=== PATIENT | female | born 1970 | race Caucasian/White ===

== ENCOUNTER 2021-03-11 14:02 | Outpatient (CLI) | payer BC | END 2021-03-11 14:03 | disposition home or self-care (01) | LOC: CSHULT 14:02 | PROVIDERS: ATTEND Student in an Organized Health Care Education/Training Program | DX: E04.1 Nontoxic single thyroid nodule (principal); E04.2 Nontoxic multinodular goiter | CPT/HCPCS: 76536 ==

== ENCOUNTER 2022-05-05 10:52 | Outpatient (CLI) | payer OTHER ==
[~2022-05-05 10:52] MED LIST: Magnevist 469MG/ML 20 ML VIAL ONE
== END 2022-05-05 10:53 | disposition home or self-care (01) ==
LOC: CSHMRI 10:52
PROVIDERS: ATTEND Ophthalmology
DX: H02.401 Unspecified ptosis of right eyelid (principal); G43.009 Migraine without aura, not intractable, without status migrainosus; R90.82 White matter disease, unspecified
CPT/HCPCS: 70543; 70544; 70547; 70553; A9579

== ENCOUNTER 2022-05-26 13:37 | Outpatient (CLI) | payer OTHER | END 2022-05-26 13:38 | disposition home or self-care (01) | LOC: CSHLAB 13:37 | PROVIDERS: ATTEND Otolaryngology Plastic Surgery within the Head & Neck | DX: Z01.818 Encounter for other preprocedural examination (principal); E07.9 Disorder of thyroid, unspecified | CPT/HCPCS: 85014; 93005; 93010 ==

== ENCOUNTER 2022-06-14 05:38 | Day surgery (SDC) | payer OTHER, SELFPAY ==
[2022-06-11 08:21] VITALS: BMI 23.3
[2022-06-14] MEDS ORDERED: Lidocaine 1% w/Epinephrine 1:100K 30 ML VIAL ONE (06:23)
[2022-06-14] MEDS ORDERED: Midazolam HCl 2 mg/2 ml Vial ONE ×2 (06:33→06:46)
[2022-06-14] MEDS ORDERED: Rocuronium Bromide 10 MG/ML (10ML VIAL) ONE (06:33)
[2022-06-14] MEDS ORDERED: Lidocaine 1% PF 5 ML VIAL ONE ×2 (06:33)
[2022-06-14] MEDS ORDERED: PROPOFOL 20 ML ONE ×2 (06:33→07:44)
[2022-06-14] MEDS ORDERED: Glycopyrrolate 0.2 MG/ML 5 ML SYRINGE ONE (06:33)
[2022-06-14] MEDS ORDERED: Fentanyl 100 MCG/2 ML VIAL ONE ×3 (06:33→08:38)
[2022-06-14] MEDS ORDERED: Ondansetron PF 4 MG/2 ML Vial ONE (06:33)
[2022-06-14] MEDS ORDERED: CEFAZOLIN 1 GM VIAL ONE (07:00)
[2022-06-14] MEDS ORDERED: PHENYLEPHRINE-NS 100 MCG/ML 10 ML SYRINGE ONE (07:19)
[2022-06-14] MEDS ORDERED: ePHEDrine Sulfate 50 MG/10 ML VIAL ONE (07:20)
[2022-06-14] MEDS ORDERED: HYDROcodone/Acetaminophen 5/325 mg Tablet ONE (09:25)
== END 2022-06-14 10:50 | disposition home or self-care (01) ==
LOC: CSHSDC 05:38
PROVIDERS: ATTEND Otolaryngology Plastic Surgery within the Head & Neck
PROC: 0GBH0ZZ Excision of Right Thyroid Gland Lobe, Open Approach (ICD-10-PCS; principal; 2022-06-14)
DX: E04.2 Nontoxic multinodular goiter (principal); G43.909 Migraine, unspecified, not intractable, without status migrainosus; Z79.899 Other long term (current) drug therapy; Z92.3 Personal history of irradiation; Z88.1 Allergy status to other antibiotic agents; Z88.2 Allergy status to sulfonamides; Z88.8 Allergy status to other drugs, medicaments and biological substances
CPT/HCPCS: 88307; J0690; J2250; J2405; J2704; J3010

== ENCOUNTER 2025-04-27 12:01 | Emergency (ER) | payer BC, SELFPAY ==
[~2025-04-27 12:01] MED LIST changes: +Iopamidol 370 76% 100 ML VIAL ONE; -Magnevist 469MG/ML 20 ML VIAL ONE
[2025-04-27 12:47] LABS: #Basophils 0.03 10x3/uL (0.0-0.2); #Eosinophils 0.13 10x3/uL (0.0-0.5); #Monocytes 0.71 10x3/uL (0.0-1.1); #Neutrophils 4.94 10x3/uL (1.5-8.4); %Basophils 0.4 % (0.0-2.0); %Eosinophils 1.6 % (0.0-6.0); %Lymphocytes 28.5 % (18.0-47.0); %Monocytes 8.7 % (0.0-10.0); %Neutrophils 60.6 % (40.0-75.0); Hematocrit 43.0 % (34.9-44.5); Hemoglobin 14.3 g/dL (12.0-15.5); Mean Corpuscular Hemoglobin 28.9 pg (27.0-33.0); Mean Corpuscular Volume 86.9 fL (81.6-98.3); Platelet Count 471 10x3/uL (150-450); Red Blood Cell (RBC) Count 4.95 10x6/uL (3.90-5.03); White Blood Cell (WBC) Count 8.15 10x3/uL (3.5-10.5)
[2025-04-27 12:55] LABS: INR-International Normal Ratio 1.0; PTT 28.9 sec (22.0-33.0); Prothrombin Time 10.9 sec (9.5-12.1)
[2025-04-27 12:56] LABS: ALT (SGPT) 13 U/L (Less than 34); AST (SGOT) 17 U/L (11-34); Albumin 3.9 g/dL (3.1-4.5); Alkaline Phosphatase 60 U/L (40-110); Anion Gap 13 mmol/L (10-20); BUN (Urea Nitrogen) 12 mg/dL (9.8-20.1); Bilirubin, Total 0.2 mg/dL (0.3-1.2); Calc. Creatinine Clearance 0 mL/min (70-130); Calcium 9.4 mg/dL (7.8-10.44); Carbon Dioxide 24 mmol/L (22-29); Chloride 106 mmol/L (98-107); Globulin 3.4 g/dL (2.4-3.5); Glucose 95 mg/dL (70-105); Potassium 4.1 mmol/L (3.5-5.1); Sodium 139 mmol/L (136-145)
[2025-04-27] MEDS ORDERED: Ketorolac Tromethamine 30 MG (1 mL) VIAL ONE (15:47)
[2025-04-27] MEDS ORDERED: predniSONE 20 MG TAB ONE (15:47)
== END 2025-04-27 16:00 | disposition home or self-care (01) ==
LOC: CSHERS 12:01
DX: G43.909 Migraine, unspecified, not intractable, without status migrainosus (principal); R79.82 Elevated C-reactive protein (CRP)
CPT/HCPCS: 36416; 70496; 80053; 85025; 85610; 85730; 86140; 93005; 93010; 96374; J1885; J7512; Q9967